=== PATIENT | female | born 2000 | race Asian ===

== ENCOUNTER 2020-04-16 14:45 | Outpatient (CLI) | payer BC | END 2020-04-16 14:46 | disposition home or self-care (01) | LOC: BICRAD 14:45 | PROVIDERS: ATTEND Family Medicine | DX: M54.9 Dorsalgia, unspecified (principal); Z00.00 Encounter for general adult medical examination without abnormal findings; M43.16 Spondylolisthesis, lumbar region | CPT/HCPCS: 72100 ==